=== PATIENT | male | born 1975 | race African-American/Black ===

== ENCOUNTER 2022-11-22 09:58 | Emergency (ER) | payer MEDICAID, OTHER ==
[~2022-11-22] VITALS: Ht 190.5 cm; Wt 108.9 kg
[2022-11-22 10:05] VITALS: BP 157/107
--- NOTE | 2022-11-22 10:17 | NUR ---
TO [facility]. PREP FOR ERMD EVAL. COMFORT MEASURES AND SUPPORTIVE CARE INITIATED. ASSESMENT PER FLOWSHEET. PT AGREES WITH PLAN OF CARE.
[2022-11-22] MEDS ORDERED: TRAM-748 PO (10:52)
[2022-11-22] MEDS ORDERED: NAPR-1704 PO (10:52)
[2022-11-22] MEDS: IBUPROFEN 600 MG TAB PO ONE (11:00)
== END 2022-11-22 10:45 | disposition home or self-care (01) ==
LOC: MED 09:58
DX: M25.562 Pain in left knee (principal); M54.50 Low back pain, unspecified; Z79.1 Long term (current) use of non-steroidal anti-inflammatories (NSAID); Z79.891 Long term (current) use of opiate analgesic; V79.49XA Driver of bus injured in collision with other motor vehicles in traffic accident, initial encounter; Y93.89 Activity, other specified; Y92.410 Unspecified street and highway as the place of occurrence of the external cause; Y99.8 Other external cause status
CPT/HCPCS: 72100; 73562; 99284

== ENCOUNTER 2022-12-09 01:26 | Emergency (ER) | payer MEDICAID ==
[~2022-12-09] VITALS: Ht 190.5 cm; Wt 108.9 kg
[~2022-12-09 01:26] MED LIST: NAPR-1704 PO; TRAM-748 PO
[2022-12-09 01:36] VITALS: BP 145/92
--- NOTE | 2022-12-09 01:39 | NUR ---
PT TO 6
[2022-12-09] MEDS ORDERED: IBUPROFEN 600 MG TAB PO ONE (01:45)
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
[2022-12-09] MEDS ORDERED: NAPR-54 PO (03:53)
--- NOTE | 2022-12-09 04:00 | NUR ---
dR Dickson AT BS TO DISCHARGE PT, DISCUSS TEST RESULT AND DCI, PT VERY GOOD UNDERSTANDING,ORTHO SHOE PROVIDED, CRUTCHES PROVIDED , PER PT HE KNOWS HOW TO USE CRUTCHES
--- NOTE | 2022-12-09 04:49 | NUR ---
toby akhtar, cd of his xray provided
== END 2022-12-09 04:00 | disposition home or self-care (01) ==
LOC: MED 01:26
DX: S92.212A Displaced fracture of cuboid bone of left foot, initial encounter for closed fracture (principal); X58.XXXA Exposure to other specified factors, initial encounter; Y93.89 Activity, other specified; Y92.89 Other specified places as the place of occurrence of the external cause; Y99.8 Other external cause status
CPT/HCPCS: 73630; 99283; Q0092